=== PATIENT | female | born 1955 | race Caucasian/White ===

== ENCOUNTER 2020-02-21 09:56 | Inpatient (IN) | payer MEDICARE, MEDICAID ==
[~2020-02-21] VITALS: Ht 152.4 cm; Wt 84.6 kg
[~2020-02-21 09:56] MED LIST: CALCTAB22; FEMORA; LEVO25TABR; NEXI40GR
[2020-02-21 12:30] VITALS: BP 134/82
[2020-02-21] MEDS ORDERED: METO50TA7 PO (13:01)
[2020-02-21] MEDS ORDERED: HEPA100I26 SC (13:01)
[2020-02-21] MEDS ORDERED: SANT250O8 TOP (13:01)
[2020-02-21] MEDS ORDERED: PANT40TA3 PO (13:01)
[2020-02-21] MEDS ORDERED: VENL150C43 PO (13:01)
[2020-02-21] MEDS ORDERED: COLA100C5 PO (13:01)
[2020-02-21] MEDS ORDERED: ABIL1TAB11 PO (13:01)
[2020-02-21] MEDS ORDERED: GABA-843 PO (13:01)
[2020-02-21] MEDS ORDERED: OYST500T91 PO (13:08)
[2020-02-21] MEDS ORDERED: TRAZ-252 PO (13:08)
[2020-02-21] MEDS ORDERED: DIPH25CA32 PO (13:08)
[2020-02-21] MEDS ORDERED: MELA3TAB49 PO (13:08)
[2020-02-21] MEDS ORDERED: BACI500O21 TOP (13:08)
[2020-02-21] MEDS ORDERED: FLOR250C PO (13:08)
[2020-02-21] MEDS ORDERED: VITMTA PO (13:08)
[2020-02-21] MEDS ORDERED: DIAZ5TAB PO (13:08)
[2020-02-21] MEDS ORDERED: MAGN400T2 PO (13:11)
[2020-02-21] MEDS ORDERED: OXYC10TA12 PO (13:11)
[2020-02-21] MEDS ORDERED: SENN8.6T28 PO (13:14)
[2020-02-21] MEDS ORDERED: OXYC-517 PO (13:14)
[2020-02-21] MEDS ORDERED: HYDR26CR PR (13:16)
[2020-02-21] MEDS ORDERED: POLY1POW38 PO (13:16)
[2020-02-21] MEDS ORDERED: POLYSPORIN TOPICAL OINTMENT 15GM TOP SCH (13:30)
[2020-02-21 14:00] VITALS: BP 128/71
[2020-02-21] MEDS ORDERED: SANTYL OINT 30GM TOP SCH (14:00)
[2020-02-21] MEDS ORDERED: ALBUTEROL 90 MCG/ACT 8GM HFA INHALER INH PRN (14:00)
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
[2020-02-21] MEDS: diazePAM 5 MG TAB PO SCH (14:33)
[2020-02-21] MEDS: ACETAMINOPHEN 500 MG TAB PO SCH ×2 (14:34→20:33)
[2020-02-21] MEDS: oxyCODONE 5MG TAB PO PRN ×2 (14:34→22:29)
[2020-02-21] MEDS: diphenhydrAMINE 25MG CAP PO PRN ×2 (15:56→22:29)
[2020-02-21] MEDS: GABAPENTIN 300 MG CAP PO SCH ×2 (15:56→20:32)
[2020-02-21 20:30] VITALS: BP 132/66
[2020-02-21] MEDS: VENLAFAXINE **XR** 75MG CAPSULE PO SCH (20:32)
[2020-02-21] MEDS: METOPROLOL TART 50 MG TAB PO SCH (20:33)
[2020-02-21] MEDS: traZODone 25MG PER 1/2 TABLET PO SCH (20:33)
[2020-02-21] MEDS: DOCUSATE SODIUM 100 MG CAP PO SCH (20:36)
[2020-02-21] MEDS: SENNA 8.6 MG TAB (SENOKOT) PO SCH (20:37)
[2020-02-22] MEDS: ACETAMINOPHEN 500 MG TAB PO SCH ×3 (05:36→21:28)
[2020-02-22 06:00] VITALS: BP 124/78
[2020-02-22 07:10] LABS: BASO % 0.4 % (0.0-1.0); EOS # 0.2 10^3/uL (0.0-0.5); EOS % 3.4 % (0.0-3.0); HEMATOCRIT 25.7 % (36.0-47.0); HEMOGLOBIN 7.6 g/dl (12.0-15.5); LYMPH # 1.5 10^3/uL (1.5-5.0); LYMPH % 21.4 % (24.0-44.0); MEAN CORPUSCULAR HEMOGLOBIN 26.6 pg (27.0-33.0); MEAN CORPUSCULAR HGB CONC 29.6 g/dl (32.0-36.5); MEAN CORPUSCULAR VOLUME 89.9 fl (80.0-96.0); MONO # 0.7 10^3/uL (0.0-0.8); MONO % 10.3 % (0.0-5.0); NEUTROPHILS # 4.5 10^3/uL (1.5-8.5); NEUTROPHILS % 63.4 % (36.0-66.0); PLATELET COUNT, AUTOMATED 394 10^3/uL (150-450); RED BLOOD COUNT 2.86 10^6/uL (4.00-5.40); WHITE BLOOD COUNT 7.2 10^3/uL (4.0-10.0)
[2020-02-22 07:34] LABS: ALBUMIN 2.3 GM/DL (3.2-5.2); BILIRUBIN,TOTAL 0.3 MG/DL (0.2-1.0); CALCIUM LEVEL 8.6 MG/DL (8.8-10.2); CREATININE FOR GFR 1.02 MG/DL (0.55-1.30); GLOMERULAR FILTRATION RATE 58.5 (>45); TOTAL PROTEIN 5.7 GM/DL (6.4-8.2)
[2020-02-22] MEDS: DOCUSATE SODIUM 100 MG CAP PO SCH ×2 (09:00→21:00)
[2020-02-22] MEDS: ENOXAPARIN 40MG/0.4ML SYRINGE (J1650 PER 10MG) SC SCH (09:14)
[2020-02-22] MEDS: GABAPENTIN 300 MG CAP PO SCH ×3 (09:14→21:29)
[2020-02-22] MEDS: diazePAM 5 MG TAB PO SCH (09:14)
[2020-02-22] MEDS: PANTOPRAZOLE 40MG TAB (PROTONIX) PO SCH (09:14)
[2020-02-22] MEDS: MULTIVITAMINS/MINERALS THERAP 1 TAB PO SCH (09:14)
[2020-02-22] MEDS: METOPROLOL TART 50 MG TAB PO SCH ×2 (09:14→21:26)
[2020-02-22] MEDS: VENLAFAXINE **XR** 75MG CAPSULE PO SCH ×2 (09:14→21:28)
[2020-02-22] MEDS: oxyCODONE 5MG TAB PO PRN ×3 (09:19→21:29)
[2020-02-22] MEDS: hydrOXYzine 25 MG TAB PO PRN (09:19)
[2020-02-22] MEDS: ASCORBIC ACID 500 MG TAB PO SCH (13:27)
[2020-02-22 13:43] LABS: HEMATOCRIT 28.7 % (36.0-47.0); HEMOGLOBIN 8.6 g/dl (12.0-15.5)
[2020-02-22 14:00] VITALS: BP 124/68
[2020-02-22 14:13] LABS: PERCENT SATURATION 14.6 % (13.2-45.0)
[2020-02-22] MEDS: ZINC SULFATE 220 MG CAP PO SCH (15:02)
[2020-02-22 20:00] VITALS: BP_SYST 123; BP_SYST 143; BP_DIAS 65; BP_DIAS 81
[2020-02-22] MEDS: SENNA 8.6 MG TAB (SENOKOT) PO SCH (21:00)
[2020-02-22] MEDS: traZODone 25MG PER 1/2 TABLET PO SCH (21:25)
[2020-02-23] MEDS: oxyCODONE 5MG TAB PO PRN ×3 (05:53→21:06)
[2020-02-23] MEDS: ACETAMINOPHEN 500 MG TAB PO SCH ×3 (05:54→21:05)
[2020-02-23 06:19] VITALS: BP 116/72
[2020-02-23] MEDS: VENLAFAXINE **XR** 75MG CAPSULE PO SCH ×2 (07:56→21:06)
[2020-02-23] MEDS: ZINC SULFATE 220 MG CAP PO SCH (07:56)
[2020-02-23] MEDS: ENOXAPARIN 40MG/0.4ML SYRINGE (J1650 PER 10MG) SC SCH (07:56)
[2020-02-23] MEDS: DOCUSATE SODIUM 100 MG CAP PO SCH ×2 (07:57→21:00)
[2020-02-23] MEDS: METOPROLOL TART 50 MG TAB PO SCH ×2 (07:58→21:05)
[2020-02-23] MEDS: MULTIVITAMINS/MINERALS THERAP 1 TAB PO SCH (07:58)
[2020-02-23] MEDS: PANTOPRAZOLE 40MG TAB (PROTONIX) PO SCH (07:58)
[2020-02-23] MEDS: ASCORBIC ACID 500 MG TAB PO SCH (07:58)
[2020-02-23] MEDS: GABAPENTIN 300 MG CAP PO SCH ×3 (07:58→21:04)
[2020-02-23] MEDS: diazePAM 5 MG TAB PO SCH (13:07)
[2020-02-23] MEDS: hydrOXYzine 25 MG TAB PO PRN ×2 (13:08→21:06)
[2020-02-23 14:00] VITALS: BP 126/63
[2020-02-23] MEDS: diphenhydrAMINE 25MG CAP PO PRN ×2 (15:27→22:11)
[2020-02-23] MEDS: SENNA 8.6 MG TAB (SENOKOT) PO SCH (21:00)
[2020-02-23] MEDS: traZODone 25MG PER 1/2 TABLET PO SCH (21:06)
[2020-02-23 22:00] VITALS: BP 115/64
[2020-02-24 06:00] VITALS: BP 116/59
[2020-02-24] MEDS: ACETAMINOPHEN 500 MG TAB PO SCH ×3 (06:24→21:48)
[2020-02-24 07:28] LABS: HEMATOCRIT 25.9 % (36.0-47.0); HEMOGLOBIN 7.6 g/dl (12.0-15.5); MEAN CORPUSCULAR HEMOGLOBIN 26.2 pg (27.0-33.0); MEAN CORPUSCULAR HGB CONC 29.3 g/dl (32.0-36.5); MEAN CORPUSCULAR VOLUME 89.3 fl (80.0-96.0); PLATELET COUNT, AUTOMATED 363 10^3/uL (150-450)
[2020-02-24] MEDS: DOCUSATE SODIUM 100 MG CAP PO SCH ×2 (09:00→21:00)
[2020-02-24] MEDS: GABAPENTIN 300 MG CAP PO SCH ×3 (09:17→21:46)
[2020-02-24] MEDS: ENOXAPARIN 40MG/0.4ML SYRINGE (J1650 PER 10MG) SC SCH (09:17)
[2020-02-24] MEDS: ASCORBIC ACID 500 MG TAB PO SCH (09:17)
[2020-02-24] MEDS: oxyCODONE 5MG TAB PO PRN ×4 (09:19→21:48)
[2020-02-24] MEDS: MULTIVITAMINS/MINERALS THERAP 1 TAB PO SCH (09:20)
[2020-02-24] MEDS: PANTOPRAZOLE 40MG TAB (PROTONIX) PO SCH (09:20)
[2020-02-24] MEDS: VENLAFAXINE **XR** 75MG CAPSULE PO SCH ×2 (09:20→21:46)
[2020-02-24] MEDS: ZINC SULFATE 220 MG CAP PO SCH (09:20)
[2020-02-24] MEDS: METOPROLOL TART 50 MG TAB PO SCH ×2 (09:20→21:47)
[2020-02-24] MEDS: diazePAM 5 MG TAB PO SCH (11:05)
[2020-02-24] MEDS: hydrOXYzine 25 MG TAB PO PRN (11:05)
[2020-02-24 14:00] VITALS: BP 125/63
[2020-02-24 20:00] VITALS: BP 124/58
[2020-02-24] MEDS: SENNA 8.6 MG TAB (SENOKOT) PO SCH (21:00)
[2020-02-24] MEDS: traZODone 25MG PER 1/2 TABLET PO SCH (21:46)
[2020-02-25] MEDS: hydrOXYzine 25 MG TAB PO PRN ×2 (01:17→09:19)
[2020-02-25] MEDS: ACETAMINOPHEN 500 MG TAB PO SCH ×3 (05:39→21:29)
[2020-02-25] MEDS: oxyCODONE 5MG TAB PO PRN ×5 (05:39→23:29)
[2020-02-25 06:00] VITALS: BP 114/72
[2020-02-25] MEDS: DOCUSATE SODIUM 100 MG CAP PO SCH ×2 (09:00→20:27)
[2020-02-25] MEDS: diazePAM 5 MG TAB PO SCH (09:19)
[2020-02-25] MEDS: ASCORBIC ACID 500 MG TAB PO SCH (09:19)
[2020-02-25] MEDS: MULTIVITAMINS/MINERALS THERAP 1 TAB PO SCH (09:19)
[2020-02-25] MEDS: ZINC SULFATE 220 MG CAP PO SCH (09:19)
[2020-02-25] MEDS: VENLAFAXINE **XR** 75MG CAPSULE PO SCH ×2 (09:20→20:29)
[2020-02-25] MEDS: PANTOPRAZOLE 40MG TAB (PROTONIX) PO SCH (09:20)
[2020-02-25] MEDS: GABAPENTIN 300 MG CAP PO SCH ×3 (09:20→20:30)
[2020-02-25] MEDS: ENOXAPARIN 40MG/0.4ML SYRINGE (J1650 PER 10MG) SC SCH (09:21)
[2020-02-25] MEDS: METOPROLOL TART 50 MG TAB PO SCH ×2 (09:24→20:30)
[2020-02-25 11:16] LABS: C REACTIVE PROTEIN QUANTITATIV 5.5 MG/DL (0.00-0.30)
[2020-02-25 13:32] LABS: HEMATOCRIT 29.2 % (36.0-47.0); HEMOGLOBIN 9.1 g/dl (12.0-15.5)
[2020-02-25] MEDS: FERROUS SULFATE 325MG TAB PO SCH ×2 (13:57→20:31)
[2020-02-25 14:00] VITALS: BP 131/63
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
[2020-02-25 20:00] VITALS: BP 118/69
[2020-02-25] MEDS: SENNA 8.6 MG TAB (SENOKOT) PO SCH (20:28)
[2020-02-25] MEDS: traZODone 25MG PER 1/2 TABLET PO SCH (20:30)
[2020-02-26] MEDS: oxyCODONE 5MG TAB PO PRN ×5 (03:35→21:26)
[2020-02-26] MEDS: ACETAMINOPHEN 500 MG TAB PO SCH ×3 (05:15→21:25)
[2020-02-26 06:00] VITALS: BP 132/72
[2020-02-26] MEDS: FERROUS SULFATE 325MG TAB PO SCH ×2 (08:01→21:26)
[2020-02-26] MEDS: METOPROLOL TART 50 MG TAB PO SCH ×2 (08:01→21:27)
[2020-02-26] MEDS: ZINC SULFATE 220 MG CAP PO SCH (08:01)
[2020-02-26] MEDS: GABAPENTIN 300 MG CAP PO SCH ×3 (08:02→21:26)
[2020-02-26] MEDS: MULTIVITAMINS/MINERALS THERAP 1 TAB PO SCH (08:02)
[2020-02-26] MEDS: ASCORBIC ACID 500 MG TAB PO SCH (08:02)
[2020-02-26] MEDS: VENLAFAXINE **XR** 75MG CAPSULE PO SCH ×2 (08:02→21:26)
[2020-02-26] MEDS: PANTOPRAZOLE 40MG TAB (PROTONIX) PO SCH (08:02)
[2020-02-26] MEDS: ENOXAPARIN 40MG/0.4ML SYRINGE (J1650 PER 10MG) SC SCH (08:03)
[2020-02-26] MEDS: DOCUSATE SODIUM 100 MG CAP PO SCH ×2 (08:11→21:00)
[2020-02-26] MEDS ORDERED: BACITRACIN TOP (10:23)
[2020-02-26] MEDS ORDERED: LOPR1TAB6 PO (10:23)
[2020-02-26] MEDS ORDERED: VENTAER INH (10:23)
[2020-02-26] MEDS ORDERED: ZINC220CA PO (10:23)
[2020-02-26] MEDS ORDERED: SANT250O8 TOP (10:23)
[2020-02-26] MEDS ORDERED: FERR325T18 PO (10:23)
[2020-02-26] MEDS ORDERED: OXYC-517 PO (10:23)
[2020-02-26] MEDS ORDERED: ASCO50TA PO (10:23)
[2020-02-26] MEDS ORDERED: POLYMYXIN TOP (10:23)
[2020-02-26] MEDS ORDERED: PANT40TA3 PO (10:23)
--- NOTE | 2020-02-26 10:25 | IPNPDOC ---
PM&R Progress Note 911 Operator Progress Note DATE OF ADMISSION: Feb 21, 2020 at 11:51 INPATIENT REHABILITATION ADMISSION DAY: # SUBJECTIVE: Patient is a -year-old with . ALLERGIES: See Below MEDICATIONS: Reviewed, see below. OBJECTIVE: VITAL SIGNS: Please see below. PHYSICAL EXAMINATION: GENERAL: [Cachectic, well developed, sitting up in bed, no acute distress]. HEENT: [Normocephalic, atraumatic]. [No facial droop]. [Poor dentition, missing teeth. PERRL, EOMI]. CARDIOVASCULAR: [S1, S2, irregular rate]. [No lower limb edema or calf tenderness]. LUNGS: [Decreased breath sounds, coarse throughout]. ABDOMEN: [Soft, nontender, nondistended. Normoactive bowel sounds throughout]. MUSCULOSKELETAL: MMT: /5 strength proximally bilateral shoulder abduction, forward flexion and bilateral hip flexion. /5 strength bilateral elbow flexion, knee flexion, /5 bilateral elbow extension and knee extension. /5 rn field, dorsiflexion, plantar flexion. NEUROLOGICAL: [Alert and oriented times three]. [Answers all question appropriately]. SKIN: . LABORATORY DATA: Reviewed. Please see below. MICROBIOLOGY: Please see below. IMAGING: ASSESSMENT AND PLAN: 1. . 2. . 3. . TIME SPENT: Chart Review, examination and documentation minutes. Allergies Coded Allergies: No Known Allergies (Verified Allergy, Unknown, 02/21/20) Vital Signs Vital Signs Date Time Temp Pulse Resp B/P (MAP) Pulse Ox O2 Delivery O2 Flow Rate FiO2 02/26/20 08:32 16 02/26/20 08:02 Room Air 02/26/20 08:01 88 132/72 02/26/20 06:00 97.3 95 Laboratory Data CBC/BMP Laboratory Tests 02/25/20 13:26 Microbiology Microbiology 02/24/20 Stool Occult Blood (DON) - Final, Complete Current Medications Current Medications Current Medications Medications (Trade) Dose Ordered Sig/Kourtney Route PRN Reason Start Time Stop Time Status Last Admin Dose Admin Acetaminophen (Tylenol Tab) 1,000 mg Q8H PO 02/21/20 14:00 02/26/20 05:15 Albuterol Sulfate (Proventil, Ventolin Hfa) 2 puff Q6H PRN INH wheeze 02/21/20 14:00 Aripiprazole (AbiLIFY) 5 mg DAILY PO 02/22/20 09:00 02/26/20 08:02 Ascorbic Acid (Vitamin C) 500 mg DAILY PO 02/22/20 09:00 02/26/20 08:02 Bacitracin/ Polymyxin B Sulfate (Polysporin Top Oint) apply to right leg daily... ASDIRECTED TOP 02/21/20 13:30 Collagenase (Santyl) please see dressing lyubov... ASDIRECTED TOP 02/21/20 14:00 Diazepam (Valium) 5 mg DAILY PO 02/21/20 09:00 02/25/20 09:19 Diphenhydramine HCl (Benadryl) 25 mg Q6HP PRN PO ITCHING 02/21/20 14:00 02/23/20 22:11 Docusate Sodium (Colace) 100 mg BID PO 02/21/20 21:00 Enoxaparin Sodium (Lovenox) 40 mg DAILY SC 02/22/20 09:00 02/26/20 08:03 Ferrous Sulfate (Ferrous Sulfate) 325 mg BID PO 02/25/20 09:00 02/26/20 08:01 Gabapentin (Neurontin) 900 mg TID PO 02/21/20 16:00 02/26/20 08:02 Home Med (Med Rec Complete!) ASDIRECTED XX 02/21/20 13:30 02/21/20 13:20 DC Hydroxyzine HCl (Atarax) 25 mg Q6HP PRN PO ANXIETY 02/21/20 14:00 02/25/20 09:19 Metoprolol Tartrate (Lopressor) 50 mg BID PO 02/21/20 21:00 02/26/20 08:01 Multivitamins (Theragram-M) 1 tab DAILY PO 02/22/20 09:00 02/26/20 08:02 Oxycodone HCl (Roxicodone, Oxyir) 5 mg Q4HP PRN PO PAIN 02/21/20 14:00 02/26/20 08:02 Pantoprazole Sodium (Protonix) 40 mg DAILY PO 02/22/20 09:00 02/26/20 08:02 Senna (Senokot) 1 tab QHS PO 02/21/20 21:00 Trazodone HCl (Desyrel) 25 mg QHS PO 02/21/20 21:00 02/25/20 20:30 Venlafaxine HCl (Effexor Xr) 150 mg BID PO 02/21/20 21:00 02/26/20 08:02 Zinc Sulfate (Zinc Sulfate) 220 mg DAILY PO 02/22/20 09:00 02/26/20 08:01 JAVAN PATE MD Feb 26, 2020 10:25
[2020-02-26 14:00] VITALS: BP 122/64
[2020-02-26] MEDS: hydrOXYzine 25 MG TAB PO PRN (14:00)
[2020-02-26] MEDS: diazePAM 5 MG TAB PO SCH (14:03)
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
[2020-02-26 20:00] VITALS: BP 119/63
[2020-02-26] MEDS: SENNA 8.6 MG TAB (SENOKOT) PO SCH (21:00)
[2020-02-26] MEDS: traZODone 25MG PER 1/2 TABLET PO SCH (21:25)
[2020-02-27] MEDS: oxyCODONE 5MG TAB PO PRN ×3 (02:45→16:37)
[2020-02-27] MEDS: diphenhydrAMINE 25MG CAP PO PRN (04:35)
[2020-02-27] MEDS: ACETAMINOPHEN 500 MG TAB PO SCH ×2 (05:24→14:00)
[2020-02-27 06:00] VITALS: BP 130/68
[2020-02-27] MEDS: DOCUSATE SODIUM 100 MG CAP PO SCH (09:00)
[2020-02-27] MEDS: MULTIVITAMINS/MINERALS THERAP 1 TAB PO SCH (10:30)
[2020-02-27] MEDS: GABAPENTIN 300 MG CAP PO SCH ×2 (10:30→16:37)
[2020-02-27] MEDS: VENLAFAXINE **XR** 75MG CAPSULE PO SCH (10:30)
[2020-02-27] MEDS: FERROUS SULFATE 325MG TAB PO SCH (10:30)
[2020-02-27] MEDS: diazePAM 5 MG TAB PO SCH (10:30)
[2020-02-27 10:31] VITALS: BP 130/68
[2020-02-27] MEDS: METOPROLOL TART 50 MG TAB PO SCH (10:31)
[2020-02-27] MEDS: PANTOPRAZOLE 40MG TAB (PROTONIX) PO SCH (10:31)
[2020-02-27] MEDS: ZINC SULFATE 220 MG CAP PO SCH (10:32)
[2020-02-27] MEDS: ENOXAPARIN 40MG/0.4ML SYRINGE (J1650 PER 10MG) SC SCH (10:32)
[2020-02-27] MEDS: ASCORBIC ACID 500 MG TAB PO SCH (10:32)
[2020-02-27 14:00] VITALS: BP 117/59
== END 2020-02-27 17:38 | disposition home health service (06) | DRG 950 ==
LOC: M PM&R 11:51
PROVIDERS: ADMIT Physical Medicine & Rehabilitation; ATTEND Physical Medicine & Rehabilitation
DX: T24.302D Burn of third degree of unspecified site of left lower limb, except ankle and foot, subsequent encounter (principal); T24.301D Burn of third degree of unspecified site of right lower limb, except ankle and foot, subsequent encounter; T21.34XD Burn of third degree of lower back, subsequent encounter; T21.32XD Burn of third degree of abdominal wall, subsequent encounter; R26.89 Other abnormalities of gait and mobility; I10 Essential (primary) hypertension; F31.9 Bipolar disorder, unspecified; D64.9 Anemia, unspecified; Z79.899 Other long term (current) drug therapy; X08.8XXD Exposure to other specified smoke, fire and flames, subsequent encounter; Y92.9 Unspecified place or not applicable; K21.9 Gastro-esophageal reflux disease without esophagitis; G43.909 Migraine, unspecified, not intractable, without status migrainosus; K64.8 Other hemorrhoids; E03.9 Hypothyroidism, unspecified; Z85.3 Personal history of malignant neoplasm of breast; Z88.5 Allergy status to narcotic agent; Z88.8 Allergy status to other drugs, medicaments and biological substances